=== PATIENT | male | born 1995 | race Two or more races ===

== ENCOUNTER 2018-06-12 16:24 | Observation (INO) | payer BC ==
[~2018-06-12] VITALS: Ht 177.8 cm; Wt 86.2 kg
[2018-06-12 17:09] LABS: Amphetamine Screen, Urine NEGATIVE (NEGATIVE); Barbiturate Scree,Urine NEGATIVE (NEGATIVE); Benzodiazephine Screen, Urine NEGATIVE (NEGATIVE); Cannabinoid Screen, Urine POSITIVE (NEGATIVE); Cocaine Screen, Urine NEGATIVE (NEGATIVE); Opiate Scree,Urine NEGATIVE (NEGATIVE); Phencyclidine Screen, Urine NEGATIVE (NEGATIVE)
[2018-06-12] MEDS ORDERED: SODIUM CHLORIDE 0.9% 1,000 ML IVB ONE (17:11)
[2018-06-12 17:12] LABS: Urine Bacteria FEW /hpf (None Seen); Urine Blood 1+ /uL (Negative); Urine Hyaline Cast FEW /lpf (0 - 2); Urine Mucus FEW (None Seen); Urine Specific Gravity 1.029 (1.001-1.035); Urine WBC 2 /hpf (0 - 3)
[2018-06-12 17:17] LABS: Basophils # (auto) 0.1 uL; Basophils % (auto) 0.9 % (0.0-2.0); Eosinophils # (auto) 0 uL; Hematocrit 40.4 % (41.0-53.0); Hemoglobin 14.1 g/dL (13.5-17.5); Lymphocytes # (auto) 0.9 uL; Lymphocytes % (auto) 13.1 % (10.0-50.0); Mean Corpuscular Hemoglobin 31.5 pg (28.0-32.0); Mean Corpuscular Volume 90.1 fL (80.0-100.0); Monocytes # (auto) 0.6 uL; Monocytes % (auto) 7.8 % (0.0-12.0); Neutrophils # (auto) 5.7 uL; Neutrophils % (auto) 78.2 % (37.0-80.0); Platelet Count (auto) 126 10^3/uL (140-450); Red Blood Cells 4.48 10^6/uL (4.5-5.90); Red Cell Distribution Width 13.9 % (11.8-14.3); White Blood Cell 7.2 10^3/uL (4.4-10.8)
[2018-06-12] MEDS ORDERED: HALOPERIDOL LACTATE 5 MG/ML INJ VIAL ONE (17:24)
[2018-06-12 17:28] LABS: Albumin 4.2 g/dL (3.4-5.0); BUN/Creatinine Ratio 8.4; Calcium 8.4 mg/dL (8.5-10.1); Potassium 3.4 mmol/L (3.5-5.1)
[2018-06-12] MEDS ORDERED: LORazepam 2MG/ML-1ML VIAL IM ONE (17:30)
[2018-06-12] MEDS ORDERED: HALOPERIDOL LACTATE 5 MG/ML INJ VIAL IM ONE (17:30)
[2018-06-12] MEDS ORDERED: LORazepam 2MG/ML-1ML VIAL ONE (17:30)
[2018-06-12] MEDS ORDERED: diphenhdrAMINE HCL 50 MG/1 ML VL IV ONE (17:30)
[2018-06-12 17:31] LABS: Salicylate 2.8 mg/dL (2.8-20.0); Total Protein 8.3 g/dL (6.4-8.2)
[2018-06-12 17:33] LABS: Acetaminophen < 2.0 ug/mL (10-30)
[2018-06-13 12:28] VITALS: BP 162/122
== END 2018-06-13 09:54 | disposition home or self-care (01) | DRG 947 ==
LOC: ER 16:29 → OVERFLOW 16:30 → ER 06-13 09:54
PROVIDERS: ADMIT Emergency Medicine; ATTEND Emergency Medicine
DX: R41.82 Altered mental status, unspecified (principal); G92 Toxic encephalopathy; F10.10 Alcohol abuse, uncomplicated; F17.210 Nicotine dependence, cigarettes, uncomplicated; F41.9 Anxiety disorder, unspecified; F20.9 Schizophrenia, unspecified; F29 Unspecified psychosis not due to a substance or known physiological condition; F12.10 Cannabis abuse, uncomplicated
CPT/HCPCS: 36415; 70450; 73090; 80053; 80307; 80320; 80329; 81001; 83735; 85025; 93005; 96361; 96372; 96374; 99285; G0378; J1630; J2060; J7030; A4565